=== PATIENT | male | born 1990 | race Caucasian/White ===

== ENCOUNTER 2022-11-28 10:51 | Emergency (ER) | payer OTHER ==
[~2022-11-28] VITALS: Ht 185.4 cm; Wt 77.1 kg
--- NOTE | 2022-11-28 12:29 | NUR ---
Patient discharged to home in stable condition. Written and verbal after care instructions given. Patient verbalizes understanding of instructions. Stressed follow up or return to ER for worsening s/s.
== END 2022-11-28 12:30 | disposition home or self-care (01) ==
LOC: ER 10:51
DX: M54.2 Cervicalgia (principal); T14.8XXA Other injury of unspecified body region, initial encounter; Y35.811A Legal intervention involving manhandling, law enforcement official injured, initial encounter; Y92.89 Other specified places as the place of occurrence of the external cause; Y99.0 Civilian activity done for income or pay
CPT/HCPCS: 70450; 72125; A4663